=== PATIENT | female | born 1985 | race Caucasian/White ===

== ENCOUNTER 2018-09-10 16:03 | Emergency (ER) | payer MEDICAID ==
[2018-09-10] MEDS: LIDOCAINE/MYLANTA 40 ML BTL PO (17:46)
[2018-09-10] MEDS: BELLADONNA/PHENOBARBITAL TAB PO (17:46)
[2018-09-10] MEDS: SOD CHLORIDE 0.9% 1,000 ML IV (17:47)
[2018-09-10] MEDS: ONDANSETRON 4 MG INJ IV (17:47)
[2018-09-10] MEDS: LOPERAMIDE 2 MG CAP PO (18:04)
== END 2018-09-10 18:48 | disposition home or self-care (01) ==
LOC: FTE 16:03
DX: K52.9 Noninfective gastroenteritis and colitis, unspecified (principal)
CPT/HCPCS: 81025; 96374; 99284-25